=== PATIENT | female | born 1955 | race Hispanic/Latino ===

== ENCOUNTER 2017-05-17 10:57 | Emergency (ER) | payer OTHER ==
--- NOTE | 2017-05-17 11:52 | ED UPPER/LOWER EXTREMITY COMPL ---
History of Present Illness General Chief Complaint: General Adult Stated Complaint: BACK PAIN, SHOULDER PAIN, +N/V Source: patient, family Exam Limitations: language barrier Allergies Uncoded Allergies: ALL ANTIBIOTICS (UNKNOWN 05/17/17) Triage Note: PT TO ED WITH FAMILY, PT IS MOSTLY PANAMANIAN SPEAKING, DAUGHTER IS ABLE TO TRANSLATE FOR HER. STATES THAT SHE HAS BEEN HAVING RT SHOULDER PAIN RADIATING DOWN HER BODY, ALONG WITH BACK PAIN. STATES SYMPTOMS HAVE BEEN GOING ON FOR "AWHILE." ALSO REPORTING THAT EVERYTHING SHE EATS "GOES RIGHT THROUGH HER." Triage Nurses Notes Reviewed? yes HPI: 61F NO PMH PRESENTING WITH MULTIPLE COMPLAINTS FOR THE PAST YEAR, INCLUDING RIGHT SHOULDER PAIN RADIATING TO RIGHT BACK, WORSE WITH ABDUCTION, LEFT BACK SWELLING, AND 2 YEARS OF CHRONIC DIARRHEA WORSENING IN THE PAST FEW MONTHS WITH ABDOMINAL CRAMPING. DENIES CHEST PAIN, SOB, BLOODY STOOL, DYSURIA, CONSTIPATION, HEADACHE, FEVER, CHILLS, N/V. (JUAN PABLO STAPLES MD) Vital Signs & Intake/Output Vital Signs & Intake/Output Vital Signs Date Time Temp Pulse Resp B/P B/P Pulse O2 O2 Flow FiO2 Mean Ox Delivery Rate 05/17 1258 97.4 68 20 103/63 98 Room Air 05/17 1127 Room Air 05/17 1101 95.1 83 16 136/86 96 Room Air Reconcile Medications Loperamide HCl (Loperamide) 2 MG CAPSULE 2 CAP PO Q6 PRN DIARRHEA (ELENI BEE,ANJUM Ward) Past History Travel History Traveled to [place] past 21 day No Medical History Any Pertinent Medical History? none Surgical History Surgical History: none Psychosocial History What is your primary language Ma[place] Tobacco Use: Never used Family History Hx Contributory? No (JUAN PABLO STAPLES MD) Review of Systems Review of Systems Constitutional: Reports: see HPI. EENTM: Reports: no symptoms. Respiratory: Reports: no symptoms. Cardiovascular: Reports: no symptoms. Gastrointestinal/Abdominal: Reports: see HPI. Genitourinary: Reports: no symptoms. Musculoskeletal: Reports: see HPI. Skin: Reports: no symptoms. Neurological/Psychological: Reports: no symptoms. Hematologic/Endocrine: Reports: no symptoms. Immunological: Reports: no symptoms. All Other Systems: Reviewed and Negative (JUAN PABLO STAPLES MD) Physical Exam Physical Exam General Appearance: well developed/nourished, no apparent distress, alert, awake , comfortable Head: atraumatic, normal appearance Ears, Nose, Throat: normal ENT inspection Neck: normal inspection, supple, full range of motion Cardiovascular/Respiratory: regular rate/rhythm Gastrointestinal: NO TENDERNESS, NORMAL BOWEL SOUNDS Back: normal inspection, normal range of motion, no vertebral tenderness Shoulder Left: normal range of motion, normal inspection Shoulder Right: normal range of motion, normal inspection, pain, MILD CREPITUS PALPATED WITH ABDUCTION Skin: LEFT BACK HAS MOBILE SOFT MASS CONSISTENT WITH LIPOMA (JHOAN BEE,JUAN PABLO) Progress Differential Diagnosis: cellulitis, CHF, dislocation, fracture, sprain, OSTEOARTHRITIS, ACUTE GASTROENTERITIS, PANCREATIC INSUFFICIENCY, CROHNS, UC, IBS , CELIAC Plan of Care: RIGHT SHOULDER X-RAY OBTAINED SHOWING AC-JOINT DEGENERATIVE DISEASE. WILL GIVE LOPERAMIDE FOR DIARRHEA WHICH IS UNLIKELY TO BE INFECTIOUS OR INFLAMMATORY IN NATURE. WILL DISCHARGE PATIENT HOME WITH OUTPATIENT PCP AND GI, LOPERAMIDE PRN FOR DIARRHEA. Diagnostic Imaging: Viewed by Me: Radiology Read. Discussed w/RAD: Radiology Read. Radiology Impression: PATIENT: MARÍA ELENA MEYER PRESENT AGE: 61 PATIENT ACCOUNT NO: [id number] : 54 LOCATION: [facility] ORDERING PHYSICIAN: JUAN PABLO STAPLES MD SERVICE DATE: 05/17/17 EXAM TYPE : RAD - XRY-SHOULDER COMPLETE-RIGHT EXAMINATION: XR SHOULDER, RIGHT CLINICAL INFORMATION: Right shoulder pain status post fall. Right shoulder arthritis versus fracture. COMPARISON: None TECHNIQUE: Four views of the right shoulder. FINDINGS: Diffuse osteopenia. No acute fracture or dislocation. Glenohumeral joint intact and unremarkable. Mild nonbursal surface spurring and sclerosis at the right acromioclavicular joint, consistent with degenerative change. No soft tissue/joint calcifications. Included right ribs intact and unremarkable. IMPRESSION: 1. No acute fracture. 2. Mild degenerative changes at the right acromioclavicular joint. (JUAN PABLO STAPLES MD) Departure Departure Time of Disposition: 1242 Disposition: HOME OR SELF CARE Condition: Stable Clinical Impression Primary Impression: Lipoma of back Secondary Impressions: Chronic diarrhea, Primary osteoarthritis, right shoulder Additional Instructions: FOLLOW UP WITH PCP, GI CLINIC, SURGERY CLINIC. TAKE LOPERAMIDE NEEDED FOR DIARRHEA. Departure Forms: Customer Survey General Discharge Information Prescriptions: Current Visit Scripts Loperamide HCl (Loperamide) 2 CAP PO Q6 PRN DIARRHEA #40 CAP (JHOAN BEE,JUAN PABLO) Departure Referrals: PATIENT HAS NO PRIMARY CARE DR (PCP/Family) ALONSO BEE,RENITA OWUSU MD,PARTHA HILL MD,ANJUM Soni
--- NOTE | 2017-05-17 12:22 | RADIOLOGY REPORT ---
EXAMINATION: XR SHOULDER, RIGHT CLINICAL INFORMATION: Right shoulder pain status post fall. Right shoulder arthritis versus fracture. COMPARISON: None TECHNIQUE: Four views of the right shoulder. FINDINGS: Diffuse osteopenia. No acute fracture or dislocation. Glenohumeral joint intact and unremarkable. Mild nonbursal surface spurring and sclerosis at the right acromioclavicular joint, consistent with degenerative change. No soft tissue/joint calcifications. Included right ribs intact and unremarkable. IMPRESSION: 1. No acute fracture. 2. Mild degenerative changes at the right acromioclavicular joint.
[2017-05-17] MEDS ORDERED: LOPERAMIDE2 M2 PO (12:46)
[2017-05-17 12:58] VITALS: BP 103/63
== END 2017-05-17 12:59 ==
LOC: ERH 10:57
DX: D17.1 Benign lipomatous neoplasm of skin and subcutaneous tissue of trunk (principal); K52.9 Noninfective gastroenteritis and colitis, unspecified; M19.011 Primary osteoarthritis, right shoulder
CPT/HCPCS: 73030-RT